=== PATIENT | male | born 1990 | race Caucasian/White ===

== ENCOUNTER 2016-10-09 17:57 | Emergency (ER) | payer OTHER ==
[2016-10-09 18:58] LABS: HEMOGLOBIN 13.3 gm/dl (14.0-17.5); RED BLOOD COUNT 4.68 M/UL (4.20-5.50); WHITE BLOOD COUNT 8.4 K/UL (4.5-11.0)
[2016-10-09 19:18] LABS: BUN/CREATININE RATIO 18 (0-10)
== END 2016-10-09 19:50 | disposition short-term general hospital (02) ==
LOC: ER1 17:57
PROVIDERS: Student in an Organized Health Care Education/Training Program
DX: S02.0XXA Fracture of vault of skull, initial encounter for closed fracture (principal); S06.6X0A Traumatic subarachnoid hemorrhage without loss of consciousness, initial encounter; G93.89 Other specified disorders of brain; L02.413 Cutaneous abscess of right upper limb; F17.210 Nicotine dependence, cigarettes, uncomplicated; Y93.39 Activity, other involving climbing, rappelling and jumping off; Z23 Encounter for immunization
CPT/HCPCS: 36415; 70450; 71010; 71260; 72125; 72128; 72131; 72170; 80053; 80307; 81001; 82550; 82553; 83605; 83690; 83874; 84484; 85025; 85610; 85730; 90471; 90715; 93005; 99285; J7050; Q9962